=== PATIENT | female | born 1995 | race Caucasian/White ===

== ENCOUNTER 2021-07-15 03:32 | Emergency (ER) | payer MEDICAID ==
[~2021-07-15] VITALS: Ht 170.2 cm; Wt 54.4 kg
[2021-07-15 03:34] VITALS: BP 129/74
--- NOTE | 2021-07-15 03:34 | NUR ---
TO BED AMBULATORY
--- NOTE | 2021-07-15 03:50 | NUR ---
PT C/O OF PELVIC PAIN 04/12, PT STATES URINE IS FREQUENT, DRIBBLING AND BURNING X 1 DAY. MEDICAL HX: DENIES MEDICATIONS: DENIES NKA
--- NOTE | 2021-07-15 03:53 | NUR ---
Dr. Cornejo examining patient.
[2021-07-15] MEDS ORDERED: CIPR500T4 PO (03:59)
[2021-07-15] MEDS ORDERED: PHEN-1877 PO (03:59)
[2021-07-15] MEDS ORDERED: IBUP-2213 PO (03:59)
[2021-07-15] MEDS ORDERED: KETOROLAC 60 MG/2 ML VIAL IM ONE ×2 (04:05→04:06)
[2021-07-15 04:12] VITALS: BP 129/74
[2021-07-15] MEDS: IBUPROFEN 600 MG TAB PO ONE (04:12)
--- NOTE | 2021-07-15 04:12 | NUR ---
Patient discharged with v/s stable. Written and verbal after care instructions given and explained. Patient alert, oriented and verbalized understanding of instructions. Ambulatory with steady gait. All questions addressed prior to discharge. ID band removed. Patient advised to follow up with PMD. Rx of CIPROFLAXIN, IBUPROFEN, AND PYRIDUM given. Patient educated on indication of medication including possible reaction and side effects. Opportunity to ask questions provided and answered.
== END 2021-07-15 04:12 | disposition home or self-care (01) ==
LOC: MED 03:32
DX: N39.0 Urinary tract infection, site not specified (principal)
CPT/HCPCS: 81002; 81025; 99283; J1885

== ENCOUNTER 2023-04-18 11:17 | Emergency (ER) | payer MEDICAID ==
[~2023-04-18] VITALS: Ht 170.2 cm; Wt 58.5 kg
[~2023-04-18 11:17] MED LIST: CIPR500T4 PO; IBUP-2213 PO; PHEN-1877 PO
[2023-04-18 11:25] VITALS: BP 118/75; PULSE 77; RESP 16; TEMP 98; O2SAT 99
[2023-04-18 11:43] VITALS: O2SAT 99
[2023-04-18] MEDS ORDERED: KETOROLAC 15 MG/ML VIAL IM ONE (11:50)
[2023-04-18] MEDS ORDERED: ONDANSETRON 4 MG ODT PO ONE (11:50)
[2023-04-18 12:30] LABS: BASOPHILS % (AUTO) 0.4 % (0.0-2.0); EOSINOPHILS # (AUTO) 0.1 K/uL (0-0.4); EOSINOPHILS % (AUTO) 1.1 % (0.0-4.0); HEMATOCRIT 42.5 % (36-48); LYMPHOCYTES # (AUTO) 1.9 K/uL (2.5-16.5); LYMPHOCYTES % (AUTO) 22.7 % (20.5-51.1); MEAN CORPUSCULAR HEMOGLOBIN 28 pg (27-31); MEAN CORPUSCULAR HGB CONC 33 g/dL (33-37); MONOCYTES # (AUTO) 0.8 K/uL (0.8-1.0); MONOCYTES % (AUTO) 10.4 % (1.7-9.3); NEUTROPHILS # (AUTO) 5.4 K/uL (1.8-7.7); NEUTROPHILS % (AUTO) 65.4 % (42.2-75.2); PLATELET COUNT (AUTO) 282 K/uL (140-450); RED BLOOD CELL COUNT(AUTO) 5.06 MIL/uL (4.20-5.40); RED CELL DISTRIBUTION WIDTH 12.8 % (11.6-13.7); WHITE BLOOD COUNT (AUTO) 8.2 K/uL (4.8-10.8)
[2023-04-18 12:41] LABS: APPEARANCE,URINE CLEAR (CLEAR); BILIRUBIN,URINE NEGATIVE (NEGATIVE); BLOOD, URINE NEGATIVE (NEGATIVE); COLOR,URINE YELLOW (YELLOW); LEUKOCYTE ESTERASE ,URINE NEGATIVE (NEGATIVE); NITRITE, URINE NEGATIVE (NEGATIVE); PROTEIN,URINE NEGATIVE (NEGATIVE); UGLUCOSE NEGATIVE (NEGATIVE); UROBILINOGEN,URINE 0.2 EU/dL (0.2 - 1)
[2023-04-18 12:50] LABS: ALBUMIN 4.1 g/dL (3.4-5.0); ANION GAP 12.3 (8-16); CARBON DIOXIDE 26.1 mmol/L (21-32); CREATININE 0.6 mg/dL (0.6-1.3); POTASSIUM 4.4 mmol/L (3.5-5.1); TOTAL BILIRUBIN 0.5 mg/dL (0.0-1.0); TOTAL PROTEIN, SERUM 7.8 g/dL (6.4-8.2)
[2023-04-18] MEDS ORDERED: LACTULOSE 20 GM/30 ML UDC PO ONE (13:05)
[2023-04-18] MEDS ORDERED: POLY17PD72 PO (13:06)
[2023-04-18] MEDS ORDERED: ONDA-188 SL (13:06)
== END 2023-04-18 14:08 | disposition home or self-care (01) ==
LOC: MED 11:17
DX: K59.00 Constipation, unspecified (principal); Z79.899 Other long term (current) drug therapy
CPT/HCPCS: 36415; 74021; 76856; 80053; 81003; 81025; 83690; 85025; 93976; 96372; 99285; J1885; Q0092; Q0162

== ENCOUNTER 2024-05-05 11:32 | Emergency (ER) | payer BC, MEDICAID ==
[~2024-05-05] VITALS: Ht 167.6 cm; Wt 59.0 kg
[~2024-05-05 11:32] MED LIST changes: +FLEPED RC; +IBUP-1842 PO; +ONDA-188 SL; +POLY17PD72 PO
[2024-05-05 11:40] VITALS: BP 116/79; PULSE 71; RESP 16; TEMP 98; O2SAT 100
[2024-05-05] MEDS: METOCLOPRAMIDE 10 MG TAB PO ONE (12:15)
[2024-05-05 12:20] LABS: BASOPHILS % (AUTO) 0.5 % (0.0-2.0); EOSINOPHILS # (AUTO) 0.1 K/uL (0-0.4); EOSINOPHILS % (AUTO) 1.4 % (0.0-4.0); HEMATOCRIT 38.7 % (36-48); HEMOGLOBIN 12.9 g/dL (12.0-16.0); LYMPHOCYTES # (AUTO) 1.7 K/uL (2.5-16.5); LYMPHOCYTES % (AUTO) 30.2 % (20.5-51.1); MEAN CORPUSCULAR HEMOGLOBIN 28 pg (27-31); MEAN CORPUSCULAR HGB CONC 34 g/dL (33-37); MEAN CORPUSCULAR VOLUME 83.6 fL (80-94); MONOCYTES # (AUTO) 0.5 K/uL (0.8-1.0); MONOCYTES % (AUTO) 9.6 % (1.7-9.3); NEUTROPHILS # (AUTO) 3.3 K/uL (1.8-7.7); NEUTROPHILS % (AUTO) 58.3 % (42.2-75.2); PLATELET COUNT (AUTO) 276 K/uL (140-450); RED BLOOD CELL COUNT(AUTO) 4.62 MIL/uL (4.20-5.40); RED CELL DISTRIBUTION WIDTH 12.6 % (11.6-13.7); WHITE BLOOD COUNT (AUTO) 5.7 K/uL (4.8-10.8)
[2024-05-05 13:08] LABS: ANION GAP 11.2 (8-16); CALCIUM 8.7 mg/dL (8.5-10.1); CARBON DIOXIDE 29.7 mmol/L (21-32); CREATININE 0.6 mg/dL (0.6-1.3); POTASSIUM 3.9 mmol/L (3.5-5.1); TOTAL BILIRUBIN 0.6 mg/dL (0.0-1.0); TOTAL PROTEIN, SERUM 7.5 g/dL (6.4-8.2)
[2024-05-05 13:13] LABS: APPEARANCE,URINE CLEAR (CLEAR); BILIRUBIN,URINE NEGATIVE (NEGATIVE); BLOOD, URINE NEGATIVE (NEGATIVE); COLOR,URINE YELLOW (YELLOW); LEUKOCYTE ESTERASE ,URINE NEGATIVE (NEGATIVE); NITRITE, URINE NEGATIVE (NEGATIVE); PH,URINE 6.5 (5.0-9.0); PROTEIN,URINE NEGATIVE (NEGATIVE); UGLUCOSE NEGATIVE (NEGATIVE); UROBILINOGEN,URINE 0.2 EU/dL (0.2 - 1)
[2024-05-05 13:37] VITALS: BP 112/75; PULSE 66; RESP 16; TEMP 98; O2SAT 100
== END 2024-05-05 13:37 | disposition home or self-care (01) ==
LOC: MED 11:32
DX: R11.0 Nausea (principal); R30.0 Dysuria; R35.0 Frequency of micturition; R39.11 Hesitancy of micturition; Z79.899 Other long term (current) drug therapy
CPT/HCPCS: 36415; 80053; 81003; 81025; 83690; 85025; 87210; 99283; J8597